=== PATIENT | male | born 1950 | race Caucasian/White ===

== ENCOUNTER 2018-08-13 09:52 | Outpatient (CLI) | payer OTHER, SELFPAY ==
[2018-08-14 09:37] LABS: PSA, Screening 0.5 ng/ml (0-6.5)
== END 2018-08-13 10:12 ==
PROVIDERS: PCP Emergency Medicine; Visit Provider Emergency Medicine
DX: Z12.5 Encounter for screening for malignant neoplasm of prostate (principal)
CPT/HCPCS: 36415; 84153; 81003

== ENCOUNTER 2018-08-13 11:18 | Outpatient (REF) | payer OTHER, SELFPAY ==
[2018-08-13 11:45] LABS: Bilirubin Negative (Negative); Blood Negative (Negative); Clarity Clear; Glucose Negative (Negative); Ketones Negative (Negative); Leukocyte Esterase Negative (Negative); Nitrite Negative (Negative); Specific Gravity 1.025 (1.005-1.025); Urobilinogen 0.2 EU/dL (Up TO 0.2); pH 5.5 (5-8)
== END 2018-08-13 11:38 ==
LOC: LBN 11:18
PROVIDERS: PCP Emergency Medicine; Visit Provider Emergency Medicine
DX: R31.9 Hematuria, unspecified (principal)
CPT/HCPCS: 81003

== ENCOUNTER 2018-08-20 08:58 | Day surgery (SDC) | payer OTHER, SELFPAY ==
--- NOTE | 2018-08-20 06:31 | W.COLOREPORT ---
Colonoscopy Report Date of procedure: 08/20/18 Pre-op diagnosis general: Hx of polyps Post-op diagnosis procedure note: other (polyps and diverticulosis) Procedure: Colonoscopy with polypectomy with cold forceps Surgeon: Betzy Alex Anesthesia proc note operative: MAC (Bebe Sampson CRNA) Estimated blood loss (mL): 3 Pathology: other (Transverse polyp x 1, descending polyp x2) Complications: None Disposition: same day Indications: Mr. Pate 18-year-old gentleman who was seen in the office to discuss another colonoscopy. He was noted to have a tubular adenoma 5 years ago. Risks, benefits and complications were again reviewed with him and he wished to proceed. No guarantees were given or implied. Prep: Miralax/Dulcolax Procedure Start Time: 11:16 Procedure End Time: 11:49 Retraction Time: 22 minutes Findings: 3 polyps and moderate diverticulosis of the sigmoid colon Procedure Description: After informed consent was obtained the patient was taken to the procedure room and placed in a left decubitous position. Monitors were applied and a time out was done. The patients name, date of , procedure, allergies to medications and metal in their body was reviewed. The patient was then sedated. Once sedated and comfortable a rectal exam was done. External exam was normal. Internal exam revealed a normal sphincter tone and no palpable masses. The prostate was smooth. The scope was then introduced and retroflexed. No internal hemorrhoids were identified. The scope was then advanced to the cecum without difficulty. The TI and appendiceal orifice were identified. The prep was marginal in the cecum and ascending colo. There was quite a bit of drak gree stool lining the mucosa. I was able to wash it off. The scope was then slowly retracted over 22 minutes back into the rectum. 1 polyp was removed in the transverse colon and 2 polyps were removed in the descending colon. There was moderate diverticulosis of the sigmoid colon. The scope was removed and the patient was woken up and taken back to Same day surgery in stable condition. The patient tolerated the procedure well and there were no immediate complications. Follow up: The patient should follow up in 3-5 years unless they develop changes in bowel habits or other new gastrointestinal complaints.
--- NOTE | 2018-08-20 06:45 | PDOC.DSDIS_ITS ---
Discharge Plan Disposition Patient Disposition: HOME Condition: Good Discharge Details Reason For Visit: SCREENING Attending Provider: Betzy Alex Primary Care Provider: Lonnie Unger Home Meds and New Rx's Prescriptions: Continue tadalafil [Cialis] 10 MG tablet 10 mg PO DAILY Qty: 20 RF: 3 atorvastatin [Lipitor] 10 MG tablet 10 mg PO DAILY Qty: 90 RF: 3 aspirin [Aspir-81] 81 MG tablet,delayed release (DR/EC) 81 mg PO DAILY RF: 0 ibuprofen [Motrin IB] 200 MG tablet 600 mg PO BID PRN PRNRF: 0 Discharge Instructions Instructions: Colonoscopy (DC), Colorectal Polyps (DC), Diverticulosis (DC) Additional Instructions: Findings: Diverticulosis Colorectal polyps Follow up: 3-5 years New Medications: none Please call if you develop: fevers >101.5 Nausea or Vomiting Abdominal pain that is not transient Shortness of breath DAY SURGERY UNIT POST COLONOSCOPY INSTRUCTIONS 1. Because there will be medication in your system for the next 24 hours, you may feel a little sleepy. Your coordination will be affected. Therefore: a. Do not drive or operate dangerous equipment for 24 hours. b. Do not drink alcohol beverages for 24 hours (not even beer). c. Plan to go home and rest for the day. 2. Generally there are no restrictions on your activity after a day or so has gone by, but you may feel a bit fatigued for a few days. 3 After you arrive home you may have a light meal and return to a normal diet as you can tolerate it without feeling sick to your stomach. 4. After surgery, you may feel pain or discomfort. This should be only transient , but if it persists please contact your doctor. 5. If there are any questions regarding the findings of your procedure, please feel free to contact your doctor. 6. If you are unable to contact your doctor with a problem, contact the hospital at [phone]. 7. Continue all your regular medications unless directed otherwise. I understand the above instructions and have no questions. Signature of Patient or Responsible Adult Escort Date/Time Name of Responsible Adult Escort Signature of Nurse Date/Time Activity:: Activity as Tolerated Diet:: high fiber diet Discharge Orders Discharge Orders: Discharge Order (Routine); Ordered 08/20/18 Ordered By: Betzy Alex DS: Diagnosis Discharge Diagnosis (1) Diverticulosis: Status: Acute (2) Colorectal polyps: Status: Acute
[2018-08-20 09:25] VITALS: BP 126/65; PULSE 63; RESP 16; TEMP 36.4; O2SAT 97
[2018-08-20] MEDS: Lactated Ringers 1,000 ML 80 ML IV (10:05)
--- NOTE | 2018-08-20 11:37 | BOWEL_PTH ---
PATIENT: David Pate LOC: [facility] U#:[id number] AGE/SX: 68/M ROOM: RE08/20/[address]: Betzy Alex MD : [id number] BED: DIS: 08/20/2018 SPEC #: [id number] RECD: 08/20/18 13:12 STATUS: MO REQ #: [id number] IZABELA: 08/20/18 11:[address]: Betzy Alex DEPT: Surgical Specimen RECD BY: Sinai Ruiz ENTERED: 08/20/18 13:13 SP TYPE: Bowel OTHR DR: Lonnie Unger DO Tissues: 1 - BIOPSY BOWEL 2 - BIOPSY BOWEL Procedures: GROSS AND MICRO LEVEL 4 Comments: [id number]
[2018-08-20 12:25] VITALS: BP 138/85; PULSE 83; RESP 16; TEMP 36; O2SAT 98
== END 2018-08-20 13:05 | disposition home or self-care (01) ==
LOC: SUR 08:59
PROVIDERS: PCP Emergency Medicine; Visit Provider Surgery
PROC: 0DJD8ZZ Inspection of Lower Intestinal Tract, Via Natural or Artificial Opening Endoscopic (ICD-10-PCS; CPT 45378; principal; 2018-08-20 10:15)
DX: Z12.11 Encounter for screening for malignant neoplasm of colon (principal); D12.3 Benign neoplasm of transverse colon; K63.5 Polyp of colon; K57.30 Diverticulosis of large intestine without perforation or abscess without bleeding; Z86.010 Personal history of colon polyps; G47.33 Obstructive sleep apnea (adult) (pediatric)
CPT/HCPCS: 45380; 88305

== ENCOUNTER 2019-01-21 02:08 | Outpatient (CLI) | payer MEDICARE, BC, SELFPAY ==
[2019-01-21 12:29] LABS: Hemoglobin A1C 5.4 % (4.5-6.2)
[2019-01-21 12:48] LABS: ALT 38 U/L (12-78); AST 25 U/L (15-37); Albumin 3.6 g/dL (3.4-5.0); Alkaline Phosphatase 66 U/L (46-116); Anion Gap 9.3 mmol/L (3-11); BUN 20 mg/dL (7-18); Bilirubin, Total 0.7 mg/dL (0.2-1.0); CO2 27.7 mmol/L (21.0-32.0); CREATININE 0.92 mg/dL (0.70-1.30); Calcium 8.7 mg/dL (8.5-10.1); Chloride 105 mmol/L (98-107); Cholesterol 174 mg/dL (50-200); Glucose 106 mg/dL (70-100); HDL Cholesterol 59 mg/dL (40-60); LDL CHOLESTEROL 96 mg/dL (<100); Potassium 4.3 mmol/L (3.5-5.1); Sodium 142 mmol/L (136-145); TSH (W/Ref FT4) 2.43 uIU/mL (0.358-3.74); Total Protein 7.1 g/dL (6.4-8.2); Triglyceride 127 mg/dL (30-150)
== END 2019-01-21 02:28 ==
PROVIDERS: PCP Family Medicine; Visit Provider Family Medicine
DX: E78.5 Hyperlipidemia, unspecified (principal); R03.0 Elevated blood-pressure reading, without diagnosis of hypertension; E66.9 Obesity, unspecified; R73.09 Other abnormal glucose
CPT/HCPCS: 36415; 80053; 80061; 83721; 83036; 84443

== ENCOUNTER → 2020-03-02 10:29 | Outpatient (BNVA) | payer MEDICARE, BC, SELFPAY | PROVIDERS: PCP Family Medicine; Referring Provider Otolaryngology; Visit Provider Nurse Practitioner Gerontology | DX: N40.0 Benign prostatic hyperplasia without lower urinary tract symptoms (principal) | CPT/HCPCS: 81003; 99204; 99215 ==

== ENCOUNTER 2020-04-20 10:53 | Outpatient (CLI) | payer MEDICARE, BC, SELFPAY ==
--- NOTE | 2020-04-20 10:45 | DI.RAD_ITS ---
EXAM: XR SHOULDER RT COMPLETE 2+V CLINICAL HISTORY: right shoulder pain. TECHNIQUE: 2D digital imaging was performed. COMPARISON: CR RIGHT SHOULDER 1 VIEW from 05/13/2013 FINDINGS: There are stable postsurgical changes of the right shoulder. This includes resection of the distal c lavicle and orthopedic anchors within the humeral head. The bones are intact. No acute fracture or dislocation. The soft tissues are unremarkable. IMPRESSION: Stable postsurgical changes of the right shoulder. DATA REPOSITORY: RADIATION DOSE DELIVERED:
== END 2020-04-20 11:13 ==
PROVIDERS: PCP Family Medicine; Referring Provider Family Medicine; Visit Provider Student in an Organized Health Care Education/Training Program
DX: M25.511 Pain in right shoulder (principal); Z98.890 Other specified postprocedural states; S46.011A Strain of muscle(s) and tendon(s) of the rotator cuff of right shoulder, initial encounter; X58.XXXA Exposure to other specified factors, initial encounter; M75.51 Bursitis of right shoulder; M75.21 Bicipital tendinitis, right shoulder; M75.41 Impingement syndrome of right shoulder
CPT/HCPCS: 99204; 99215; 73030

== ENCOUNTER 2020-04-26 00:21 | Outpatient (CLI) | payer MEDICARE, BC, SELFPAY ==
--- NOTE | 2020-04-26 06:45 | DI.MRI_ITS ---
EXAM: MR UPPER JOINT RT WO CLINICAL HISTORY: Rotator cuff re-tear, Prior open repair 2012, tendinitis, impingement. TECHNIQUE: Multiplanar multisequence MRI was performed. COMPARISON: None. FINDINGS: There has been a previous distal or distal clavicular resection. Multiple metallic densities are no apple in the humeral head related to prior rotator cuff tendon repair. Due to the artifact, the distal supraspinatus tendon is not well seen. There is mild supraspinatus muscle atrophy. The infraspinat us tendon appears intact. There is fluid around the biceps tendon inferiorly. There is marked edema within the superior biceps tendon. The biceps tendon appears is subluxed medially. There is spurri ng at the lesser tuberosity. The subscapularis teres minor tendons appear intact. No labral defects are identified. IMPRESSION: Severe tendinosis of the long head of the biceps tendon with medial subluxation. DATA REPOSITORY:
== END 2020-04-26 00:41 ==
PROVIDERS: PCP Family Medicine; Visit Provider Student in an Organized Health Care Education/Training Program
DX: M75.21 Bicipital tendinitis, right shoulder (principal); S46.119A Strain of muscle, fascia and tendon of long head of biceps, unspecified arm, initial encounter
CPT/HCPCS: 73221

== ENCOUNTER → 2020-04-28 11:20 | Outpatient (BNVA) | payer MEDICARE, BC, SELFPAY | PROVIDERS: PCP Family Medicine; Referring Provider Family Medicine; Visit Provider Student in an Organized Health Care Education/Training Program | DX: S46.011D Strain of muscle(s) and tendon(s) of the rotator cuff of right shoulder, subsequent encounter (principal); X58.XXXD Exposure to other specified factors, subsequent encounter; M75.21 Bicipital tendinitis, right shoulder; M75.41 Impingement syndrome of right shoulder; M75.51 Bursitis of right shoulder | CPT/HCPCS: 99214 ==

== ENCOUNTER → 2020-05-31 08:17 | Outpatient (BNVA) | payer MEDICARE, BC, SELFPAY | PROVIDERS: PCP Family Medicine; Referring Provider Family Medicine; Visit Provider Nurse Practitioner Gerontology | DX: N40.0 Benign prostatic hyperplasia without lower urinary tract symptoms (principal) | CPT/HCPCS: 99213 ==

== ENCOUNTER → 2020-06-16 07:59 | Outpatient (BNVA) | payer MEDICARE, BC, SELFPAY | PROVIDERS: PCP Family Medicine; Referring Provider Family Medicine; Visit Provider Student in an Organized Health Care Education/Training Program | DX: S46.011D Strain of muscle(s) and tendon(s) of the rotator cuff of right shoulder, subsequent encounter (principal); X58.XXXD Exposure to other specified factors, subsequent encounter; M75.21 Bicipital tendinitis, right shoulder; M75.41 Impingement syndrome of right shoulder; M75.51 Bursitis of right shoulder; M75.22 Bicipital tendinitis, left shoulder | CPT/HCPCS: 99213 ==

== ENCOUNTER 2020-07-01 03:12 | Outpatient (CLI) | payer MEDICARE, BC, SELFPAY ==
[2020-07-01 12:42] LABS: ALT 31 U/L (16-63); AST 18 U/L (15-37); Albumin 3.7 g/dL (3.4-5.0); Alkaline Phosphatase 65 U/L (46-116); Anion Gap 7.5 mmol/L (3-11); BUN 20 mg/dL (7-18); CO2 26.5 mmol/L (21.0-32.0); CREATININE 0.84 mg/dL (0.70-1.30); Calcium 8.7 mg/dL (8.5-10.1); Calculated LDL 98 mg/dL (<100); Chloride 104 mmol/L (98-107); Cholesterol 170 mg/dL (<200); Glucose 95 mg/dL (74-106); HDL Cholesterol 56 mg/dL (40-60); Sodium 138 mmol/L (136-145); Total Protein 6.8 g/dL (6.4-8.2); Triglyceride 84 mg/dL (<150)
[2020-07-01 18:38] LABS: PSA, Diagnostic 0.5 ng/mL (0.0-6.5)
== END 2020-07-01 03:32 ==
PROVIDERS: PCP Family Medicine; Visit Provider Family Medicine
DX: I10 Essential (primary) hypertension (principal); E78.00 Pure hypercholesterolemia, unspecified; N40.0 Benign prostatic hyperplasia without lower urinary tract symptoms
CPT/HCPCS: 36415; 80053; 80061; 84153

== ENCOUNTER 2020-07-16 07:56 | Outpatient (CLI) | payer MEDICARE, BC, SELFPAY ==
[2020-07-19 16:08] LABS: Patient Race White; SARS-CoV-2 RNA Undetected (Undetected); SARS-CoV-2 Specimen Source Nasopharynx
== END 2020-07-16 08:16 ==
PROVIDERS: PCP Family Medicine; Visit Provider Family Medicine
DX: R50.81 Fever presenting with conditions classified elsewhere (principal)
CPT/HCPCS: U0003

== ENCOUNTER 2020-08-19 14:34 | Outpatient (CLI) | payer MEDICARE, BC, SELFPAY ==
--- NOTE | 2020-08-23 11:52 | W.HOLTRPT ---
Date of service: 08/23/20 Time of Service: 11:52 Holter Monitor Report Referring Provider:: Pb Indications:: HTN/Palps Holter Monitor Note: This is a 48-hour Holter monitor ordered for indication of hypertension and palpitations. ?The patient was in normal sinus rhythm for 82% of the recording with an average heart rate of 76 bpm. ?There were 0 episodes of supraventricular tachycardia and rare PACs. ?There were 3 episodes of NSVT with the longest lasting 4 beats. There were frequent (11%) single ventricular ectopic beats. ?There were no episodes of atrial fibrillation, no pauses greater than 3 seconds and no evidence of high degree heart block.
== END 2020-08-19 14:54 ==
PROVIDERS: PCP Family Medicine; Visit Provider Family Medicine
DX: R00.2 Palpitations (principal); I10 Essential (primary) hypertension
CPT/HCPCS: 93225

== ENCOUNTER 2020-08-23 10:09 | Outpatient (CLI) | payer MEDICARE, BC, SELFPAY | END 2020-08-23 10:29 | PROVIDERS: PCP Family Medicine; Visit Provider Family Medicine | DX: I10 Essential (primary) hypertension (principal); R00.2 Palpitations; I47.2 Ventricular tachycardia; I49.3 Ventricular premature depolarization | CPT/HCPCS: 93227; 93226 ==

== ENCOUNTER → 2021-06-06 08:06 | Outpatient (BNVA) | payer MEDICARE, BC, SELFPAY | PROVIDERS: PCP Family Medicine; Referring Provider Family Medicine; Visit Provider Nurse Practitioner Gerontology | DX: N40.0 Benign prostatic hyperplasia without lower urinary tract symptoms (principal); Z79.899 Other long term (current) drug therapy | CPT/HCPCS: 99214 ==

== ENCOUNTER 2021-08-31 02:19 | Outpatient (CLI) | payer MEDICARE, BC, SELFPAY ==
[2021-08-31 15:23] LABS: BUN 16 mg/dL (7-18); Calcium 8.9 mg/dL (8.5-10.1); Glucose 98 mg/dL (74-106)
[2021-08-31 15:24] LABS: Albumin 3.9 g/dL (3.4-5.0); Bilirubin, Total 0.7 mg/dL (0.2-1.0); CREATININE 0.8 mg/dL (0.70-1.30); Calculated LDL 110 mg/dL (<100); Cholesterol 189 mg/dL (<200); HDL Cholesterol 54 mg/dL (40-60); Total Protein 7.2 g/dL (6.4-8.2); Triglyceride 125 mg/dL (<150)
[2021-08-31 15:25] LABS: ALT 43 U/L (16-63); AST 26 U/L (15-37); Alkaline Phosphatase 89 U/L (46-116); Anion Gap 7.5 mmol/L (3-11); CO2 29.5 mmol/L (21.0-32.0); Chloride 106 mmol/L (98-107); Potassium 4.5 mmol/L (3.5-5.1); Sodium 143 mmol/L (136-145)
[2021-08-31 22:44] LABS: PSA, Diagnostic 0.5 ng/mL (0.0-6.5)
== END 2021-08-31 02:20 | disposition home or self-care (01) ==
PROVIDERS: PCP Family Medicine; Visit Provider Family Medicine
DX: I10 Essential (primary) hypertension; H18.419 Arcus senilis, unspecified eye; N40.0 Benign prostatic hyperplasia without lower urinary tract symptoms
CPT/HCPCS: 36415; 80053; 80061; 84153

== ENCOUNTER → 2022-03-23 09:32 | Outpatient (BNVA) | payer MEDICARE, BC, SELFPAY | PROVIDERS: PCP Family Medicine; Referring Provider Family Medicine; Visit Provider Student in an Organized Health Care Education/Training Program | DX: M75.21 Bicipital tendinitis, right shoulder (principal) | CPT/HCPCS: 99214 ==

== ENCOUNTER → 2022-04-28 09:10 | Outpatient (BNVA) | payer MEDICARE, BC, SELFPAY | PROVIDERS: PCP Family Medicine; Referring Provider Family Medicine; Visit Provider Student in an Organized Health Care Education/Training Program | DX: M75.21 Bicipital tendinitis, right shoulder (principal) | CPT/HCPCS: 99215 ==

== ENCOUNTER 2022-05-01 02:52 | Outpatient (CLI) | payer MEDICARE, BC, SELFPAY ==
[2022-05-01 12:40] LABS: Source Nasal/Nares
[2022-05-01 15:24] LABS: COVID-19 PCR Negative (Negative)
== END 2022-05-01 02:53 | disposition home or self-care (01) ==
LOC: LBO 02:52
PROVIDERS: PCP Family Medicine; Visit Provider Student in an Organized Health Care Education/Training Program
DX: Z20.822 Contact with and (suspected) exposure to COVID-19 (principal); Z01.818 Encounter for other preprocedural examination
CPT/HCPCS: 87635

== ENCOUNTER 2022-05-01 11:26 | Emergency (ER) | payer MEDICARE, BC, SELFPAY ==
--- NOTE | 2022-05-01 11:15 | RT.EKG_ITS ---
APPROVED REPORT Exam: Resting ECG Reason for Exam: R facial numbness/CVA concern Patient Location: E HR:66 bpm ECG Measurements Heart Rate 66 AXIS WY 132 P 7 QRSd 113 QRS -30 QT 402 T 71 QTc 420 Conclusion Sinus rhythm...normal P axis, V-rate 60- 99 sinus rhythm at 66, normal axis, T wave flattening compared to prior 08/10, no STEMI, nondiagnostic E KG
[2022-05-01 11:34] VITALS: BP 150/77; PULSE 67; TEMP 36.5; O2SAT 96
[2022-05-01 12:00] VITALS: RESP 16
[2022-05-01 12:29] VITALS: BP 129/70; PULSE 68; RESP 18; O2SAT 94
[2022-05-01 12:42] VITALS: TEMP 36.4
--- NOTE | 2022-05-01 13:00 | DI.MRI_ITS ---
Exam(s) MR ANGIO NECK WO CLINICAL HISTORY: new vertigo. TECHNIQUE: MRA MAGNETIC RESONANCE ANGIOGRAPHY OF THE NECK CONTRAST MATERIAL: IV Contrast: NONE. COMPARISON: None. FINDINGS: ANTERIOR CIRCULATION: Aortic arch anatomy is conventional. There does not appear to be significant s tenosis at the origin the great vessels off the aortic arch. Both common carotid arteries ascend nor mal luminal diameters. There is no evidence of significant stenosis at the carotid bulbs and proxima l internal carotid arteries and the internal carotid arteries in the upper neck appear nicely patent. POSTERIOR CIRCULATION: Both vertebral arteries arising conventional fashion off the subclavian arteri es and ascend with normal luminal diameters in the foramen transverse area no evidence of intralumina l thrombus nor dissection. At the skull base both vertebral arteries contribute to the formation of the basilar artery. IMPRESSION: 1. Patent carotid arteries in the neck. No hemodynamically significant stenosis of these vessels in the neck. 2. Patent vertebral arteries in the neck. 3. See separate brain MRA report DATA REPOSITORY:
--- NOTE | 2022-05-01 13:00 | DI.MRI_ITS ---
Exam(s) MR BRAIN WO EXAM: MR BRAIN WO CLINICAL HISTORY: new vertigo TECHNIQUE: Multiplanar multisequence MRI of the brain was performed. COMPARISON: MR MR ANGIO BRAIN WO from 05/01/2022 FINDINGS: CEREBRAL PARENCHYMA: There is no evidence of intracranial hemorrhage, mass effect, or shift of midline structures. There are no extra-axial fluid collections. Ventricles are not enlarged or shifted. There is no significant focal signal abnormality in the cerebellar hemispheres nor within the bean, m idbrain, and thalami. There are few small sub cm foci of signal abnormality in the [place] in supra ventricular white matter, not associated with hemorrhage or surrounding edema nor restricted diffusion on DWI. Also no evidenc e of microhemorrhages on SWI.. There is no significant focal signal abnormality evident on diffusion imaging to suggest acute ischem ic event. PITUITARY GLAND: No mass nor parasellar abnormality. No obvious abnormality in the cavernous sinuses. FLOW VOIDS: The expected flow void are noted. No evidence of obvious aneurysm nor obvious vascular ma lformation. PARANASAL SINUSES: The visualized paranasal sinuses appear unremarkable. No obvious finding ORBITS: No obvious findings. IMPRESSION: No significant acute intracranial findings on this noninfused MRI scan of the brain. Are few nonspecific foci of signal abnormality in periventricular white matter consistent with chroni c small vessel ischemic changes. No evidence of hemorrhage. No evidence of acute ischemic event. DATA REPOSITORY:
--- NOTE | 2022-05-01 13:00 | DI.MRI_ITS ---
Exam(s) MR ANGIO BRAIN WO EXAM: MR ANGIO BRAIN WO CLINICAL HISTORY: new vertigo TECHNIQUE: MRA performed on 1.5 stephen unit with [id number] sequence No IV contrast COMPARISON: No exams were available for comparison FINDINGS: ANTERIOR CIRCULATION: Both internal carotid arteries are patent in the skull base and are also demonstrated to be patent in the cavernous sinuses. Supraclinoid aspects of these vessels are patent and nonaneurysmal. Both A1 segments are patent as are the anterior cerebral arteries and there is no evidence of aneurysm at th e level of the anterior communicating artery. POSTERIOR CIRCULATION: Basilar artery is formed by both vertebral arteries and ascends in the midline with normal luminal diameter. Distally in the basilar artery gives off patent bilateral superior ce rebellar arteries. Above this level the basilar artery terminates as patent bilateral posterior cere bral arteries. There is no evidence of aneurysm of the tip basilar artery nor elsewhere in the [id number]. IMPRESSION: 1. Patent intracranial arteries. No significant stenosis nor intraluminal thrombus. No aneurysms. DATA REPOSITORY:
[2022-05-01 13:17] LABS: Abs Immature Grans 0.01 10^3/uL (0.0-0.06); Absolute Basophil Count 0.03 10^3/uL (0.0-0.2); Absolute Eosinophil Count 0.11 10^3/uL (0.0-0.7); Absolute Lymphocyte Count 1.82 10^3/uL (1.2-3.4); Absolute Monocyte Count 0.64 10^3/uL (0.1-0.8); Basophils % 0.4; Eosinophils % 1.6; HCT 37.7 % (40.0-50.0); HGB 12.9 g/dL (13.5-17.5); Immature Grans % 0.1; Lymphocytes % 27.1; MCH 30.6 pg (27.0-33.0); MCHC 34.2 % (32.0-36.0); MCV 90 fL (80-95); MPV 9.3 fL (8.0-11.0); Monocytes % 9.5; Neutrophils % 61.3; Platelet Count 224 10^3/uL (130-400); RBC 4.21 10^6/uL (4.36-5.78); RDW 13.4 % (11.8-14.1); RDW-SD 44.2 fL; WBC 6.71 10^3/uL (4.4-10.8)
--- NOTE | 2022-05-01 13:48 | ED.GENADUL_ITS ---
Discharge Plan Disposition Patient Disposition: HOME Condition: Good Discharge Details Clinical Impression: Dizziness Primary Care Provider: Bobbi Ambriz ED Provider: Ish Nicolas Home Meds and New Rx's Prescriptions: New meclizine 25 mg tablet 25 mg PO BID PRNQty: 30 0RF Continued mecobalamin (vitamin B12) 1,000 mcg tablet,disintegrating 1,000 mcg SL DAILY Rx Instructions: place tablet under tongue and allow to dissolve for at least30 secs before swallowing ICaps AREDS2 250 mg-200 unit -12.5 mg-1 mg capsule 1 cap PO BID fexofenadine [Sheron Allergy] 180 mg tablet 180 mg PO DAILY atorvastatin [Lipitor] 10 mg tablet 10 mg PO DAILY Qty: 90 3RF tamsulosin 0.4 mg capsule 0.4 mg PO DAILY Qty: 90 3RF aspirin [Aspir-81] 81 MG tablet,delayed release (DR/EC) 81 mg PO DAILY tadalafil [Cialis] 10 mg tablet 10 mg PO DAILY PRN No Action amlodipine 10 mg tablet 10 mg PO HS celecoxib 200 mg capsule 200 mg PO BID PRN (Reason: pain) Qty: 60 1RF aspirin 81 mg tablet,delayed release (DR/EC) 81 mg PO BID Qty: 28 0RF acetaminophen 500 mg tablet 1,000 mg PO Q8H PRN (Reason: pain) Qty: 90 3RF oxycodone 5 mg tablet 5 mg PO Q4H Qty: 15 0RF Discharge Instructions Instructions: Benign Paroxysmal Positional Vertigo (ED), Dizziness (ED) Additional Instructions: Please return immediately to the emergency department if you develop any new or worsening symptoms, if your condition does not improve as expected, or if you become otherwise concerned. It is extremely important that you call soon as possible to make an appointment to be seen in follow-up for this visit by your primary care doctor. Stand Alone Forms: Physical Therapy Referral Referrals: Bobbi Ambriz MD, [place] [Primary Care Provider] - Discharge Data Discharge Date/Time-TO BE ENTERED AT DEPARTURE: 05/01/22 18:18 Medical Decision Making David Pate is a 72-year-old man with history of hypertension, hyperlipidemia, sleep apnea, BPH presenting to the emergency department with dizziness. Patient reports that for the past 4 days or so he has had an intermittent sensation of abnormal movement/spinning/feeling somewhat off balance. Patient reports that symptoms seem to be worse at night and while lying down, but he does occasionally have them during the day while seated or standing. Patient reports that symptoms are brief, lasting seconds to 1 to 2 minutes. Patient reports that he has also had an intermittent odd sensation in his right face that is new, feels somewhat tingly. He reports that this is also intermittent. 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 Patient reports that he has never had similar symptoms in the past. He states that he is also concerned because he is due to have shoulder surgery this week, and wanted to make sure that he was not having a medical problem that would cause issues during surgery. He denies fever, cough, shortness of breath, vomiting, diarrhea, other numbness, weakness, any pain including ear pain, hearing changes, tinnitus. Patient states that he does not think that he is feeling faint/lightheaded during these episodes, but that he is unsure. He has not had any loss of consciousness. On exam Pt is well and non-toxic appearing. Non-focal neuro exam. Concern for peripheral vs stuttering TIA/central vertigo, other. Doubt ACS, PE, arrhythmia. Exam/hx at this time is not c/w meningitis, acute intracranial hemorrhage, sepsis. Plan for EKG, IV placement, MRI/MRA, screening labs. If initial w/u neg will obtain repeat trop. MRI/MRA neg. Pt signed out to Dr. Ish Nicolas at time of shift change with repeat trop pending. Medical Records Medical records reviewed: Yes I reviewed the patient's medical records. Lab Data Lab results reviewed: Yes I reviewed the patient's lab results. ECG Data Attestation: I personally reviewed and interpreted this ECG (s) as follows: Interpretation: EKG shows sinus rhythm at 66, normal axis, T wave flattening compared to prior 08/10, no STEMI, nondiagnostic EKG HPI General Mode of arrival: ambulatory . Date/Time Provider Initiated Documentation: 05/01/22 12:50 . Limitations to Documentation: no limitations . Information obtained by: patient, family, RN notes reviewed and old records reviewed . HPI Narrative: David Pate is a 72-year-old man with history of hypertension, hyperlipidemia, sleep apnea, BPH presenting to the emergency department with dizziness. Patient reports that for the past 4 days or so he has had an intermittent sensation of abnormal movement/spinning/feeling somewhat off balance. Patient reports that symptoms seem to be worse at night and while lying down, but he does occasionally have them during the day while seated or standing. Patient reports that symptoms are brief, lasting seconds to 1 to 2 minutes. Patient reports that he has also had an intermittent odd sensation in his right face that is new, feels somewhat tingly. He reports that this is also intermittent. 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 Patient reports that he has never had similar symptoms in the past. He states that he is also concerned because he is due to have shoulder surgery this week, and wanted to make sure that he was not having a medical problem that would cause issues during surgery. He denies fever, cough, shortness of breath, vomiting, diarrhea, other numbness, weakness, any pain including ear pain, hearing changes, tinnitus. Patient states that he does not think that he is feeling faint/lightheaded during these episodes, but that he is unsure. He has not had any loss of consciousness. Rel ated Data Home Medications Medication Instructions Recorded Confirmed aspirin 81 mg tablet,delayed 81 mg PO DAILY 04/14/13 05/03/22 release (Aspir-) mecobalamin (vitamin B12) 1,000 1,000 mcg sublingual DAILY 04/20/20 05/03/22 mcg disintegrating tablet,sublingual vit C 250 mg-vit E 200 unit-zinc 1 cap PO BID 08/19/20 05/03/22 ox 12.5 [id number] capsule (ICaps AREDS2) fexofenadine 180 mg tablet 180 mg PO DAILY 03/10/21 05/03/22 (Sheron Allergy) atorvastatin 10 mg tablet (Lipitor) 10 mg PO DAILY #90 tab-caps 11/10/21 05/03/22 tamsulosin 0.4 mg capsule 0.4 mg PO DAILY #90 caps 11/10/21 05/03/22 meclizine 25 mg tablet 25 mg PO BID PRN #30 tabs 05/01/22 05/03/22 tadalafil 10 mg tablet (Cialis) 10 mg PO DAILY PRN 05/01/22 05/03/22 amlodipine 10 mg tablet 10 mg PO HS 05/02/22 05/03/22 acetaminophen 500 mg tablet 1,000 mg PO Q8H PRN pain #90 tabs 05/03/22 aspirin 81 mg tablet,delayed 81 mg PO BID #28 tabs 05/03/22 release celecoxib 200 mg capsule 200 mg PO BID PRN pain #60 caps 05/03/22 oxycodone 5 mg tablet 5 mg PO Q4H #15 tabs 05/03/22 Previous Rx's Medication Instructions Recorded atorvastatin 10 mg tablet (Lipitor) 10 mg PO DAILY #90 tab-caps 11/10/21 tamsulosin 0.4 mg capsule 0.4 mg PO DAILY #90 caps 11/10/21 meclizine 25 mg tablet 25 mg PO BID PRN #30 tabs 05/01/22 acetaminophen 500 mg tablet 1,000 mg PO Q8H PRN pain #90 tabs 05/03/22 aspirin 81 mg tablet,delayed 81 mg PO BID #28 tabs 05/03/22 release celecoxib 200 mg capsule 200 mg PO BID PRN pain #60 caps 05/03/22 oxycodone 5 mg tablet 5 mg PO Q4H #15 tabs 05/03/22 Allergies Allergy/AdvReac Type Severity Reaction Status Date / Time adhesive Allergy Intermediate Skin Rash Verified 05/03/22 06:34 Penicillins Allergy Unknown ? Rash, Verified 05/03/22 06:34 patient not sure, happened as child General Stated Complaint: Dizzy/Sync CHIKI: 3 Review of Systems Narrative: Constitutional: denies fevers Eyes: denies eye pain ENT: denies ear pain, dental pain, sore throat Cardiovascular: denies chest pain, edema, palpitations Respiratory: denies SOB, cough GI: denies abdominal pain, vomiting, diarrhea : denies flank pain MSK: denies back pain, neck pain, arthralgias, myalgias Skin: denies rash Neuro: denies headaches, numbness, weakness, reports vertigo PFSH All Active Problems Dizziness (Acute) Dysfunction of right rotator cuff (Acute) Tendonitis of long head of biceps brachii of right shoulder (Acute) Rash (Acute) Heart palpitations (Acute) Hypertension (Chronic) Impingement syndrome of right shoulder (Acute) PVC (premature ventricular contraction) (Acute) Diverticulosis (Chronic) Tubular adenoma of colon (Chronic) 10/13/14 08/20/18 DR. MORENO Tinnitus (Chronic) Sensorineural hearing loss, bilateral (Chronic 08/21/14) fit with bilateral hearing aids 09/08/14 Sciatica (Chronic) left Peripheral venous insufficiency (Chronic) leg ulcers right and left-Seeing Dr. 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 Kendall Nieves 04-28-2013; excision distal clavicle Benign prostatic hyperplasia (Chronic) Medical History Bursitis of right shoulder Chronic ulcer of lower extremity Decreased hearing of both ears Elevated blood pressure reading Globus sensation Dr. Xavier History of surgery S/P left rotator cuff repair. S/P vein stripping of legs. S/P ORIF of left index finger, S/P T and A. S/P some kind of nose surgery. Post-nasal drip Dr. Xavier Tendinitis of long head of biceps brachii of left shoulder Throat clearing Dr. Xavier Traumatic tear of right rotator cuff Unilateral inguinal hernia right Welcome to Medicare preventive visit Surgical History Colonoscopy - MAC (~07/2018) 2005; 2013, TUBULAR ADENOMA History of vein stripping Repair of inguinal hernia LEFT Rotator Cuff Repair (01/09/11) left Status post inguinal hernia repair Status post rotator cuff repair vein stripping (04/26/10) non-healing venous stasis ulcer; LLE; Greater saphenous vein stripping Family History Mother , 70s Breast cancer Father , 80 Liver disease Diabetes Cancer Sister , 60s Diabetes Hyperlipidemia Cancer Brother Heart disease Hyperlipidemia Stroke Brother Alcohol abuse Breast cancer Social History Smoking/Tobacco Use Status: Never Second Hand Exposure: Yes Smoking risk assessment performed?: Yes Alcohol Intake: current Alcohol Intake frequency: a few times a week Drug use: Never Substance use type: does not use Caregiver/Support person: No Household members: spouse Housing: house Communication Needs: Hard of Hearing Do you need help understanding health information?: Never Pets and animals: Yes Pets and animals: cat(s) and dog(s) Sexually active: Yes Do you think of yourself as: straight/heterosexual Current gender identity: male What is your relationship status?: How often do you talk on the phone with friends or family?: three or more times per week How often do you get together with friends or relatives?: three or more times per week How often do you attend confucianist or oriental orthodox services?: decline to answer Do you belong to any clubs or organized social groups?: yes Panel score (0-1 are the most socially isolated patients): 3 Raquel/Advent: Yazdanism Special raquel needs: No Seatbelt use: always Drive intox or ride w/intox auto carrier driver: No Do you feel safe in your relationship?: Yes Additional Social history: unable to assess [facility] Exam Narrative Exam Narrative: Constitutional: well and [id number]-[id number], pleasant, conversing normally HENT: head atraumatic/normocephalic/normal inspection, mucous membranes moist, normal TMs and canals, no masotid TTP b/l Eyes: conjunctiva normal, sclera normal, pupils 3mm b/l ERRLA, EOMI without nystagmus Neck: no stridor, full painless, ROM, trachea midline Chest: normal inspection Resp: normal work of breathing, LCTAB Cardio: normal rate, normal rhythm, no murmur appreciated GI: abdomen soft, non-tender, non-distended Back: normal inspection, no rash Skin: warm, dry, normal color, no rash Neuro: alert, not altered, 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, motor 5/5 throughout, normal finger to nose and heel to winslow b/l, normal tone Ext: no edema Psych: normal mood, normal affect, normal behavior Course Vital Signs Vital signs: Vital Signs Temperature 36.5 C 05/01/22 11:34 Pulse 67 05/01/22 11:34 Blood Pressure 150/77 H 05/01/22 11:34 Pulse Oximetry 96 05/01/22 11:34 Temperature 36.4 C L 05/01/22 12:42 Temperature Source Oral 05/01/22 12:42 Pulse 68 05/01/22 12:29 Respiratory Rate 18 05/01/22 12:29 Respiratory Effort Non-Labored 05/01/22 12:00 Respiratory Depth Normal 05/01/22 12:00 Respiratory Pattern Normal 05/01/22 12:00 Blood Pressure 129/70 05/01/22 12:29 Blood Pressure Position Sitting 05/01/22 11:34 Pulse Oximetry 94 05/01/22 12:29 Oxygen Delivery Method Room Air 05/01/22 12:29 Oxygen Flow Rate 0 05/01/22 12:29 Pain Level 0 05/01/22 12:29 Lab/Test Results Lab/Test Results: Laboratory Tests Range/Units 05/01/22 05/01/22 05/01/22 11:55 11:55 11:55 WBC (4.4-10.8) 10^3/uL 6.71 RBC (4.36-5.78) 10^6/uL 4.21 L Hgb (13.5-17.5) g/dL 12.9 L Hct (40.0-50.0) % 37.7 L MCV (80-95) fL 90 MCH (27.0-33.0) pg 30.6 MCHC (32.0-36.0) % 34.2 RDW (11.8-14.1) % 13.4 Plt Count (130-400) 10^3/uL 224 MPV (8.0-11.0) fL 9.3 Immature Gran % 0.1 Neutrophils % 61.3 Lymphocytes % 27.1 Monocytes % 9.5 Eosinophils % 1.6 Basophils % 0.4 Nucleated RBC % (0.0-0.3) % 0.0 Absolute Neutrophils (1.2-6.7) 10^3/uL 4.10 Absolute Lymphocytes (1.2-3.4) 10^3/uL 1.82 Absolute Monocytes (0.1-0.8) 10^3/uL 0.64 Absolute Eosinophils (0.0-0.7) 10^3/uL 0.11 Absolute Basophils (0.0-0.2) 10^3/uL 0.03 D-Dimer Cancelled Sodium Cancelled Potassium Cancelled Chloride Cancelled Carbon Dioxide Cancelled Anion Gap Cancelled BUN Cancelled Creatinine Cancelled Estimated GFR/1.73 m2 Cancelled Glucose Cancelled Calcium Cancelled Magnesium Cancelled Total Bilirubin Cancelled AST Cancelled ALT Cancelled Alkaline Phosphatase Cancelled Troponin I Cancelled Total Protein Cancelled Albumin Cancelled Sign Out Sign Out Data: Sign Out Comment: Patient signed out to Dr. Nicolas at time of shift change with repeat troponin pending Last updated by Malina Nicolas MD at 05/01/22 16:32
[2022-05-01 14:16] LABS: ALT 36 U/L (16-63); AST 21 U/L (15-37); Albumin 3.6 g/dL (3.4-5.0); Alkaline Phosphatase 95 U/L (46-116); Anion Gap 8.3 mmol/L (3-11); BUN 15 mg/dL (7-18); Bilirubin, Total 0.6 mg/dL (0.2-1.0); CO2 26.7 mmol/L (21.0-32.0); CREATININE 0.8 mg/dL (0.70-1.30); Calcium 8.6 mg/dL (8.5-10.1); Chloride 106 mmol/L (98-107); Glucose 91 mg/dL (74-106); Magnesium 2.2 mg/dL (1.8-2.4); Potassium 3.5 mmol/L (3.5-5.1); Sodium 141 mmol/L (136-145); Total Protein 7.1 g/dL (6.4-8.2); Troponin I < 50 ng/L (<or=60)
[2022-05-01 14:30] LABS: D-Dimer 518 ng/mlFEU (<500)
[2022-05-01 16:51] VITALS: BP 137/83; PULSE 64; TEMP 36.5; O2SAT 98
[2022-05-01 16:51] LABS: Troponin I < 50 ng/L (<or=60)
--- NOTE | 2022-05-01 17:42 | W.EDPROG ---
Date of service: 05/01/22 Time of Service: 17:42 Medical Decision Making Care signed out by Dr. Brittanie Nicolas, please see her documentation regarding initial ED presentation and course. MRI of the brain was interpreted by radiology:IMPRESSION: No significant acute intracranial findings on this noninfused MRI scan of the brain. Are few nonspecific foci of signal abnormality in periventricular white matter consistent with chronic small vessel ischemic changes.? No evidence of hemorrhage.? No evidence of acute ischemic event. MRA of the brain was interpreted by radiology:IMPRESSION: 1. Patent intracranial arteries.? No significant stenosis nor intraluminal thrombus.? No aneurysms. MRA of the neck was interpreted by radiology:IMPRESSION: 1. Patent carotid arteries in the neck.? No hemodynamically significant stenosis of these vessels in the neck. 2. Patent vertebral arteries in the neck. 3. See separate brain MRA report Plan at signout was to follow-up on delta troponin. Second troponin reviewed and negative and unchanged from prior. Plan for discharge with outpatient follow-up. Will start meclizine and refer to PT for vestibular rehab. Usual customary discharge instructions were reviewed with the patient. A medical screening exam was performed today. Patient stable at discharge. Lab Data Lab results reviewed: Yes I reviewed the patient's lab results. Labs: Laboratory Tests Range/Units 05/01/22 05/01/22 05/01/22 11:55 11:55 11:55 WBC (4.4-10.8) 10^3/uL 6.71 RBC (4.36-5.78) 10^6/uL 4.21 L Hgb (13.5-17.5) g/dL 12.9 L Hct (40.0-50.0) % 37.7 L MCV (80-95) fL 90 MCH (27.0-33.0) pg 30.6 MCHC (32.0-36.0) % 34.2 RDW (11.8-14.1) % 13.4 Plt Count (130-400) 10^3/uL 224 MPV (8.0-11.0) fL 9.3 Immature Gran % 0.1 Neutrophils % 61.3 Lymphocytes % 27.1 Monocytes % 9.5 Eosinophils % 1.6 Basophils % 0.4 Nucleated RBC % (0.0-0.3) % 0.0 Absolute Neutrophils (1.2-6.7) 10^3/uL 4.10 Absolute Lymphocytes (1.2-3.4) 10^3/uL 1.82 Absolute Monocytes (0.1-0.8) 10^3/uL 0.64 Absolute Eosinophils (0.0-0.7) 10^3/uL 0.11 Absolute Basophils (0.0-0.2) 10^3/uL 0.03 D-Dimer Cancelled Sodium Cancelled Potassium Cancelled Chloride Cancelled Carbon Dioxide Cancelled Anion Gap Cancelled BUN Cancelled Creatinine Cancelled Estimated GFR/1.73 m2 Cancelled Glucose Cancelled Calcium Cancelled Magnesium Cancelled Total Bilirubin Cancelled AST Cancelled ALT Cancelled Alkaline Phosphatase Cancelled Troponin I Cancelled Total Protein Cancelled Albumin Cancelled Range/Units 05/01/22 05/01/22 05/01/22 13:20 13:23 13:40 WBC (4.4-10.8) 10^3/uL RBC (4.36-5.78) 10^6/uL Hgb (13.5-17.5) g/dL Hct (40.0-50.0) % MCV (80-95) fL MCH (27.0-33.0) pg MCHC (32.0-36.0) % RDW (11.8-14.1) % Plt Count (130-400) 10^3/uL MPV (8.0-11.0) fL Immature Gran % Neutrophils % Lymphocytes % Monocytes % Eosinophils % Basophils % Nucleated RBC % (0.0-0.3) % Absolute Neutrophils (1.2-6.7) 10^3/uL Absolute Lymphocytes (1.2-3.4) 10^3/uL Absolute Monocytes (0.1-0.8) 10^3/uL Absolute Eosinophils (0.0-0.7) 10^3/uL Absolute Basophils (0.0-0.2) 10^3/uL D-Dimer Cancelled Sodium Cancelled 141 Potassium Cancelled 3.5 Chloride Cancelled 106 Carbon Dioxide Cancelled 26.7 Anion Gap Cancelled 8.3 BUN Cancelled 15 Creatinine Cancelled 0.8 Estimated GFR/1.73 m2 Cancelled >= 60.00 Glucose Cancelled 91 Calcium Cancelled 8.6 Magnesium Cancelled 2.2 Total Bilirubin Cancelled 0.6 AST Cancelled 21 ALT Cancelled 36 Alkaline Phosphatase Cancelled 95 Troponin I Cancelled < 50 Total Protein Cancelled 7.1 Albumin Cancelled 3.6 Range/Units 05/01/22 05/01/22 13:40 15:59 WBC (4.4-10.8) 10^3/uL RBC (4.36-5.78) 10^6/uL Hgb (13.5-17.5) g/dL Hct (40.0-50.0) % MCV (80-95) fL MCH (27.0-33.0) pg MCHC (32.0-36.0) % RDW (11.8-14.1) % Plt Count (130-400) 10^3/uL MPV (8.0-11.0) fL Immature Gran % Neutrophils % Lymphocytes % Monocytes % Eosinophils % Basophils % Nucleated RBC % (0.0-0.3) % Absolute Neutrophils (1.2-6.7) 10^3/uL Absolute Lymphocytes (1.2-3.4) 10^3/uL Absolute Monocytes (0.1-0.8) 10^3/uL Absolute Eosinophils (0.0-0.7) 10^3/uL Absolute Basophils (0.0-0.2) 10^3/uL D-Dimer 518 H Sodium Potassium Chloride Carbon Dioxide Anion Gap BUN Creatinine Estimated GFR/1.73 m2 Glucose Calcium Magnesium Total Bilirubin AST ALT Alkaline Phosphatase Troponin I < 50 Total Protein Albumin Sign Out Sign Out Data: Sign Out Comment: Patient signed out to Dr. Nicolas at time of shift change with repeat troponin pending Last updated by Malina Nicolas MD at 05/01/22 16:32 Discharge Plan Disposition Patient Disposition: HOME Condition: Good Discharge Details Clinical Impression: Dizziness Primary Care Provider: Bobbi Ambriz ED Provider: Ish Nicolas Home Meds and New Rx's Prescriptions: New meclizine 25 mg tablet 25 mg PO BID PRNQty: 30 0RF Continued mecobalamin (vitamin B12) 1,000 mcg tablet,disintegrating 1,000 mcg SL DAILY Rx Instructions: place tablet under tongue and allow to dissolve for at least30 secs before swallowing ICaps AREDS2 250 mg-200 unit -12.5 mg-1 mg capsule 1 cap PO BID fexofenadine [Sheron Allergy] 180 mg tablet 180 mg PO DAILY amlodipine 10 mg tablet 10 mg PO DAILY Qty: 90 5RF atorvastatin [Lipitor] 10 mg tablet 10 mg PO DAILY Qty: 90 3RF tamsulosin 0.4 mg capsule 0.4 mg PO DAILY Qty: 90 3RF aspirin [Aspir-81] 81 MG tablet,delayed release (DR/EC) 81 mg PO DAILY tadalafil [Cialis] 10 mg tablet 10 mg PO DAILY PRN Discharge Instructions Additional Instructions: Please return immediately to the emergency department if you develop any new or worsening symptoms, if your condition does not improve as expected, or if you become otherwise concerned. It is extremely important that you call soon as possible to make an appointment to be seen in follow-up for this visit by your primary care doctor. Stand Alone Forms: Physical Therapy Referral Referrals: Bobbi Ambriz MD, [place] [Primary Care Provider] -
[2022-05-01 18:13] VITALS: BP 134/89; PULSE 66; TEMP 36.5; O2SAT 97
== END 2022-05-01 18:18 | disposition home or self-care (01) ==
PROVIDERS: Student in an Organized Health Care Education/Training Program; Emergency Provider Student in an Organized Health Care Education/Training Program; PCP Family Medicine
DX: R42 Dizziness and giddiness (principal); R20.0 Anesthesia of skin
CPT/HCPCS: 70544; 70547; 80053; 87635; 93005; 70551; 83735; 84484; 85025; 85379; 93010; 99284; 99285

== ENCOUNTER 2022-05-03 06:14 | Day surgery (SDC) | payer MEDICARE, BC, SELFPAY ==
[2022-05-03] VITALS (13 sets, daily range): BP systolic 98–134; BP diastolic 44–79; PULSE 51–69; RESP 10–21; TEMP 36.4–37; O2SAT 91–98; BMI 34.0
--- NOTE | 2022-05-03 03:02 | ANES.PREOP_ITS ---
General Info Date of Service Date Performed: 05/03/22 Height: 5 ft 11 in Weight: 110.677 kg Body Mass Index (BMI): 34.0 Surgical Procedure: Operation Date: 05/03/22 07:40 Proposed Procedure Side Surgeon p Shoulder Possible Rotator Cuff Arthroscopic,Biceps Tenodesis Right Bean Vincent MD Meds Allergies and Home Medications Allergies Allergy/AdvReac Type Severity Reaction Status Date / Time adhesive Allergy Intermediate Skin Rash Verified 05/03/22 06:34 Penicillins Allergy Unknown ? Rash, Verified 05/03/22 06:34 patient not sure, happened as child Home Medication Medication Instructions Recorded aspirin 81 mg tablet,delayed 81 mg PO DAILY 04/14/13 release (Aspir-) mecobalamin (vitamin B12) 1,000 1,000 mcg sublingual DAILY 04/20/20 mcg disintegrating tablet,sublingual vit C 250 mg-vit E 200 unit-zinc 1 cap PO BID 08/19/20 ox 12.5 [id number] capsule (ICaps AREDS2) fexofenadine 180 mg tablet 180 mg PO DAILY 03/10/21 (Sheron Allergy) atorvastatin 10 mg tablet (Lipitor) 10 mg PO DAILY #90 tab-caps 11/10/21 tamsulosin 0.4 mg capsule 0.4 mg PO DAILY #90 caps 11/10/21 meclizine 25 mg tablet 25 mg PO BID PRN #30 tabs 05/01/22 tadalafil 10 mg tablet (Cialis) 10 mg PO DAILY PRN 05/01/22 amlodipine 10 mg tablet 10 mg PO HS 05/02/22 acetaminophen 500 mg tablet 1,000 mg PO Q8H PRN pain #90 tabs 05/03/22 aspirin 81 mg tablet,delayed 81 mg PO BID #28 tabs 05/03/22 release celecoxib 200 mg capsule 200 mg PO BID PRN pain #60 caps 05/03/22 oxycodone 5 mg tablet 5 mg PO Q4H #15 tabs 05/03/22 Current Visit Medications: Current Medications Generic Name Dose Route Start Last Admin Trade Name Freq PRN Reason Stop Dose Admin Acetaminophen 1,000 mg 05/03/22 06:30 Acetaminophen 500 Mg Tab PO 05/03/22 06:31 NOW ONE Celecoxib 400 mg 05/03/22 06:00 Celecoxib 200 Mg Cap PO 06/01/22 23:59 PREOP MELANI Ringer's Solution 1,000 mls @ 80 mls/hr 05/03/22 06:00 IV 06/01/22 23:59 INFUSION MELANI Cefazolin Sodium/Dextrose 2 gm in 50 mls @ 100 mls/hr 05/03/22 06:00 Ancef Duplex IVPB 06/01/22 23:59 PREOP MELANI IV Miscellaneous Supplies 1 each 05/03/22 06:00 Iv Access IV 06/01/22 23:59 DIRECTED MELANI Sodium Chloride 0 ml 05/03/22 06:00 Normal Saline Flush 10 Ml Syr IV 06/01/22 23:59 PRN PRN Sodium Chloride 0 ml 05/03/22 06:00 Normal Saline 10 Ml Vial IJ 06/01/22 23:59 DIRECTED PRN Sterile Water 0 ml 05/03/22 06:00 Water,Injection,Sterile 10 Ml Vial IJ 06/01/22 23:59 DIRECTED PRN PFSH Active Problems Active Problems: Problem Status Onset Code Dizziness R42 Dysfunction of right rotator cuff M67.911 Tendonitis of long head of biceps brachii of right shoulder M75.21 Rash R21 Heart palpitations R00.2 Hypertension I10 Impingement syndrome of right shoulder M75.41 PVC (premature ventricular contraction) I49.3 Diverticulosis K57.90 Tubular adenoma of colon D12.6 Tinnitus H93.19 Sensorineural hearing loss, bilateral 08/21/14 H90.3 Sciatica M54.30 Peripheral venous insufficiency I87.2 Obstructive sleep apnea syndrome 07/23/12 G47.33 Obesity E66.9 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 Xavier History of surgery S/P left rotator cuff repair. S/P vein stripping of legs. S/P ORIF of left index finger, S/P T and A. S/P some kind of nose surgery. Post-nasal drip Dr. Xavier Tendinitis of long head of biceps brachii of left shoulder Throat clearing Dr. Xavier Traumatic tear of right rotator cuff Unilateral inguinal hernia right Welcome to Medicare preventive visit Surgical History Surgical History Colonoscopy - MAC (~07/2018) 2006; 2014, TUBULAR ADENOMA History of vein stripping Repair of inguinal hernia LEFT Rotator Cuff Repair (01/09/11) left Status post inguinal hernia repair Status post rotator cuff repair vein stripping (04/26/10) non-healing venous stasis ulcer; LLE; Greater saphenous vein stripping Tobacco Smoking/Tobacco Use Status: Never Passive smoking exposure: Yes Second hand exposure: Yes Alcohol Alcohol Intake: current Alcohol intake frequency: a few times a week Substance Use Substance use: Never Substance use type: does not use Vital Signs and Lab Results Vital Signs Most Recent Vital Signs in EMR: Temp Pulse Resp BP Pulse Ox 36.7 C 69 16 123/77 98 05/03/22 06:30 05/03/22 06:30 05/03/22 06:30 05/03/22 06:30 05/03/22 06:30 Lab Results Blood Type / Crossmatch: No Data to Display Complete Blood Count: White Blood Count 6.71 10^3/uL (4.4-10.8) 05/01/22 11:55 Red Blood Count 4.21 10^6/uL (4.36-5.78) L 05/01/22 11:55 Hemoglobin 12.9 g/dL (13.5-17.5) L 05/01/22 11:55 Hematocrit 37.7 % (40.0-50.0) L 05/01/22 11:55 Platelet Count 224 10^3/uL (130-400) 05/01/22 11:55 Complete Metabolic Panel: Sodium Level 141 mmol/L (136-145) 05/01/22 13:40 Potassium Level 3.5 mmol/L (3.5-5.1) 05/01/22 13:40 Chloride Level 106 mmol/L (98-107) 05/01/22 13:40 Carbon Dioxide Level 26.7 mmol/L (21.0-32.0) 05/01/22 13:40 Blood Urea Nitrogen 15 mg/dL (7-18) 05/01/22 13:40 Creatinine 0.8 mg/dL (0.70-1.30) 05/01/22 13:40 Estimated GFR/1.73 m2 >= 60.00 (mL/min/1.73m2) 05/01/22 13:40 Magnesium Level 2.2 mg/dL (1.8-2.4) 05/01/22 13:40 Calcium Level 8.6 mg/dL (8.5-10.1) 05/01/22 13:40 Albumin 3.6 g/dL (3.4-5.0) 05/01/22 13:40 Glucose Level 91 mg/dL (74-106) 05/01/22 13:40 Liver Function Panel: Alanine Aminotransferase (ALT/SGPT) 36 U/L (16-63) 05/01/22 13: 40 Aspartate Amino Transf (AST/SGOT) 21 U/L (15-37) 05/01/22 13:40 Coagulation Panel: D-Dimer 518 ng/mlFEU (<500) H 05/01/22 13:40 Cardiac Panel: Troponin I < 50 ng/L (<or=60) 05/01/22 Arterial Blood Gas: No Data to Display Venous Blood Gas: No Data to Display Pancreas Panel: No Data to Display Thyroid Panel: No Data to Display Infectious Disease: Coronavirus (COVID-19)(PCR) Negative (Negative) 05/01/22 10:19 Coronavirus 2019 Source Nasal/Nares 05/01/22 10:19 Blood Cultures: No Data to Display Toxicology Panel: No Data to Display Imaging and Studies Imaging and Studies Study information below may be from another EMR and interpreted by another provider. Please see original notes in EMR for more complete details. EKG Summary: 05/01/22: sinus. Anesthesia Assessment and Plan Anesthesia History Personal History: No History of Anesthesia Complications Family History: No Family History of Anesthesia Complications Exercise Tolerance Exercise Tolerance: Metabolic Equivalents>4 Cardiac & Pulmonary Exam Cardiac Exam: Normal S1/S2 Heart Sounds Pulmonary Exam: Clear Bilateral Breath Sounds Implantable Cardiac Device Does patient have a Pacemaker or an ICD?: No Airway Exam Known Difficult Airway: No Mallampati Class: 3 Mouth Opening: Narrow (< 3cm) Thyromental Distance: Greater than 3 cm Neck Range of Motion: Full ROM and Limited ROM Neck Circumference: Thick Teeth Condition: Normal Dentition ASA Classification ASA Score: ASA 2 Emergency Case?: No NPO Status NPO Status: NPO Clears >2 hours, Solids >8 hours Anesthesia Plan Resuscitation Status: Full Code Anesthesia Technique: General Anesthesia Airway Planned: Endotracheal Tube Pain Management: Surgeon and patient request nerve block Monitors Used: Standard Monitors Preoperative Comments:: 72 yo male for right shoulder repair. Sig PMHx: dizziness, HTN, PVC, venous stasis, MANFRED, never smoker, occ EtOH. Had a recent ED visit for dizziness and facial numbness. He had a MRI/MRA of head and neck that ruled out CVA/carotid issues. I called to discuss this with him on 05/03/22 to discuss that I could not guarantee that anesthesia could make him more dizzy and may set him back. He understands the risk, and would like to proceed. Plan: DYAN [facility]
[2022-05-03] MEDS: Celecoxib 200 MG CAP 400 MG PO (06:38)
[2022-05-03] MEDS: Acetaminophen 500 MG TAB 1000 MG PO (06:38)
[2022-05-03] MEDS: Lactated Ringers 1,000 ML 80 ML IV (07:10)
--- NOTE | 2022-05-03 07:22 | PDOC.DSDIS_ITS ---
Discharge Plan Disposition Patient Disposition: HOME Condition: Good Discharge Details Reason For Visit: Right Shoulder Biceps Tendinitis, Rotator Cuff Dys Attending Provider: Bean Vincent Primary Care Provider: Bobbi Ambriz Home Meds and New Rx's Prescriptions: New celecoxib 200 mg capsule 200 mg PO BID PRN (Reason: pain) Qty: 60 1RF aspirin 81 mg tablet,delayed release (DR/EC) 81 mg PO BID Qty: 28 0RF acetaminophen 500 mg tablet 1,000 mg PO Q8H PRN (Reason: pain) Qty: 90 3RF oxycodone 5 mg tablet 5 mg PO Q4H Qty: 15 0RF Continued mecobalamin (vitamin B12) 1,000 mcg tablet,disintegrating 1,000 mcg SL DAILY Rx Instructions: place tablet under tongue and allow to dissolve for at least30 secs before swallowing ICaps AREDS2 250 mg-200 unit -12.5 mg-1 mg capsule 1 cap PO BID fexofenadine [Sheron Allergy] 180 mg tablet 180 mg PO DAILY atorvastatin [Lipitor] 10 mg tablet 10 mg PO DAILY Qty: 90 3RF tamsulosin 0.4 mg capsule 0.4 mg PO DAILY Qty: 90 3RF aspirin [Aspir-81] 81 MG tablet,delayed release (DR/EC) 81 mg PO DAILY amlodipine 10 mg tablet 10 mg PO HS tadalafil [Cialis] 10 mg tablet 10 mg PO DAILY PRN meclizine 25 mg tablet 25 mg PO BID PRNQty: 30 0RF Discharge Instructions Stand Alone Forms: Melisa Thacker w/RCR Referrals: Bean Vincent MD [ [facility] STAFF PHYSICIAN] - Equipment/Supplies: Sling Activity:: In Sling Remove Dressings/Wound Care:: 72 hours Shower/Bathe:: 72 hours Discharge Orders Discharge Orders: Discharge Order (Routine); Ordered 05/03/22 Ordered By: Bean Vincent
[2022-05-03] MEDS: ceFAZolin 2 GM/50 ML BAG IVPB (07:31)
--- NOTE | 2022-05-03 07:59 | W.ANESNERVE ---
Nerve Block Single Injection Procedure Date and Time Date Performed: 05/03/22 Procedure Start: 07:18 Location Where Procedure Performed Procedure Location: Day Surgery Unit Reason Performed: Postoperative Analgesia Requesting Provider: Bean Vincent Timeout Performed Timeout Performed: Yes Monitoring Used ECG, Blood Pressure and SpO2 Sterility Sterility: Hand Hygiene, Surgical Cap, Surgical Mask, Sterile Gloves and Chlorhexidine Sedation Given During Procedure Sedation Given (Indicate Dose Given): No Sedation given Patient Mental Status Patient Mental Status: Awake Nerve Block 1st Nerve Block: Laterality: Right Block Type: Interscalene Needle / Catheter Used: 100mm SonoPlex II Local Anesthetic Bolus (Indicate Dose Given): Lidocaine used for local infiltration of skin, Injected in 3-5ml increments after negative blood aspiration and Bupivacaine 0.375% Dose:: 20 mL Additives (Indicate Dose Given): Precedex Dose:: 40 mcg Ultrasound: Sterile probe cover and gel used Ultrasound Image Saved?: Yes Nerve Stimulator: Not Used Paresthesia: None Procedure Tolerated: No Complications Procedure Outcome: Successful Performed By: Som Narayan
[2022-05-03] MEDS: EPINEPHrine 30 MG/30 ML VIAL (08:10)
--- NOTE | 2022-05-03 09:02 | W.PM.OP ---
Date of service: 05/03/22 Time of Service: 09:02 Operative Note Operative Note DATE OF PROCEDURE: 05/03/22 PRE-OP DIAGNOSIS: Right Biceps Tendonitis, Rotator Cuff Dysfunction POST-OP DIAGNOSIS: other (Right biceps tendonitis, partial tear along with upper subscapularis tear) PROCEDURE: - Arthroscopic Rotator Cuff Repair - Extensive debridement of anterior and posterior glenohumeral joint and rotator cuff - Biceps Tenotomy SURGEON: Bean Vincent FRONT END DEVELOPER: Nguyễn Walker Refer to Anesthesia Record ESTIMATED BLOOD LOSS: 0 PATHOLOGY: none sent COMPLICATIONS: None Patient was transported to: PACU Patient's condition: stable Indications: I have seen David in clinic for a painful shoulder. Pathology was confirmed based on previous MRI and exam findings. Nonoperative measures were exhausted but disability and pain persisted. I discussed shoulder arthroscopy and procedures. I reviewed the risks of the procedures to include, but not limited to, bleeding, infection, pain, stiffness, damage to nerves or vessels, recurrence, hardware failure, blood clot. Despite these risks, the patient elected to proceed. Findings: A diagnostic arthroscopy was performed with the following findings: Articular Side - Glenohumeral Joint: Minimal arthritic changes, Grade I chondromalacia of the inferior glenoid and the humeral head - Labrum: Fraying and tearing of superior and anterior labrum - Cuff: Upper subscapularis tear, thinning but no clear tear of supraspinatus/infraspinatus - Biceps: Fraying and inflammatory changes, subluxable medially. Subacromial Side - Bursal: No significant inflammation - Rotator Cuff: 2-3mm bursal tear of the supraspinatus - No significant spurring Procedure Description: David was greeted in the preoperative holding area where the correct side was identified and marked. The consent was reviewed with the patient and signed. The history and physical was updated. All questions were answered. He was taken back to the PACU for administration of an intrascalene nerve block. David was then taken to the operating room. The patient was placed into the supine position on the operating room table. A general anesthetic was administered. David was then positioned in the beach chair position. All bony prominences were well padded. The head was placed in a foam head of marketing adometry in a neutral position. Prophylactic antibiotics in the form of Cefazolin were administered. The right arm/shoulder was then prepped with Chloraprep and draped in a standard fashion with stockinette and shoulder drape. A timeout to confirm correct identity, side and site, procedure, allergies, anesthesia, and medical concerns was performed. The arm was placed into a pneumatic delgaod, SPIDER2. The shoulder arthroscopy was then performed. The glenohumeral joint was injected with 20 cc of normal saline with good flow back. A standard posterior portal was made and the joint was entered atraumatically with a blunt arthroscope. Once inside we had good visualization of the structures of the glenohumeral joint. An anterior portal was established with spinal needle localization. A 6.5 mm cannula was inserted. A probe was then used to perform a diagnostic arthroscopy. There is noted to be only some mild, grade 1, changes of the cartilage of the inferior glenoid and the humeral head. There is small osteophyte at the inferior margin of the humeral head. The labrum was was intact but had fraying noted mostly superiorly and anteriorly with a largely deficient anterior labrum and a large middle glenohumeral ligament, Ewell complex. There were no loose bodies in the inferior pouch. The superior rotator cuff was attached to the tuberosity with some chronic changes related to previous surgery and thinning of the tendon but no true tearing off of the tuberosity. Some irregularities over the inferior surface of the supraspinatus. The biceps tendon had some partial tearing over its anterior margin with inflammatory change and it was easily subluxated out of its groove. The subscapularis was grossly intact except for the superior aspect. The upper portion subscapularis had fraying and was pulled off of its lesser tuberosity insertion. At this point I used the shaver to perform debridement of the posterior and anterior labrum. I also removed a portion of the rotator interval for better visualization of the subscapularis. An electrocautery device was then utilized to perform a biceps tenotomy. Further debridement of the rotator interval was performed. Shaver was also then utilized to debride the leading edge of the subscapularis for better visualization. I then placed a secondary portal anterior to the anterior edge of the supraspinatus over the roof of the bicipital groove. This was made with a spinal needle localization and a 6.5 mm cannula was placed. This began the primary working portal for manipulation of the subscapularis. A debridement of the tendon edge as well as the upper portion of the lesser tuberosity was performed with a shaver. A 4.5 mm Mitek Healix anchor was then placed within the lesser tuberosity footprint from the anterior portal. This was tested and noted to have excellent purchase within the bone. From the anterior lateral portal, I then placed 2 horizontal mattress sutures through the healthy tendinous portion of subscapularis. These were placed and then brought out the anterior portal. Reduction appeared to be excellent onto the lesser tuberosity footprint. I then tied each of the sutures using standard arthroscopic knot tying techniques. The sutures were cut and the subscapularis was tested to 45 degrees of external rotation without lift off. Is also mainly probed had no lift off from the lesser tuberosity. The arthroscope was then inserted into the subacromial space. The 6.5 mm cannula was placed lateral to the CA ligament. A bursectomy was performed anteriorly, posteriorly, and laterally with electrocautery and shaver. There is no significant inflammatory change. This had excellent exposure of the rotator cuff. The bursal side rotator cuff was intact except for a very small area, 2 to 3 mm, of tearing of the bursal side of the anterior supraspinatus. This was debrided.. There was no significant anterolateral spur. The scope equipment was removed from the shoulder. Excess fluid was evacuated. The portal sites were closed with 3-0 Monocryl. The wounds were dressed with Steri-Strips, 4 x 4's, ABDs, Medipore tape. A sling was applied. The patient tolerated the procedure well and was returned to the PACU in a stable condition suffering no known complication.
--- NOTE | 2022-05-03 09:38 | ROE_ITS ---
Date of service: 05/03/22 Operative Note Operative Note DATE OF PROCEDURE: 05/03/22 POST-OP DIAGNOSIS: other (Right biceps tendonitis, partial tear along with upper subscapularis tear) PROCEDURE: - Arthroscopic Rotator Cuff Repair - Extensive debridement of anterior and posterior glenohumeral joint and rotator cuff - Biceps Tenotomy SHEARING SHED WORKER: Nguyễn Walker Refer to Anesthesia Record ESTIMATED BLOOD LOSS: 0 PATHOLOGY: none sent Patient was transported to: PACU Patient's condition: stable Implants: - Arthroscopic Rotator Cuff Repair - Extensive debridement of anterior and posterior glenohumeral joint and rotator cuff - Biceps Tenotomy
--- NOTE | 2022-05-03 10:53 | W.ANESPOSTOP ---
Postoperative Evaluation Date, Time and Location Date Performed: 05/03/22 Time Performed: 10:53 Patient Location: Day Surgery Unit Vital Signs Most Recent Imported Vital Signs: Most Recent Vital Signs Temp Pulse Resp BP Pulse Ox 36.4 C L 53 L 16 105/62 93 05/03/22 10:44 05/03/22 10:44 05/03/22 10:44 05/03/22 10:44 05/03/22 10:44 Pain Score Most Recent Pain Score: Most Recent Pain Score Pain Level 0 05/03/22 10:44 Assessment Mental Status: Awake (Alert & Oriented to Patient Baseline) Airway and Respiratory Function: Patent airway with normal (patient baseline) respiratory exam Cardiovascular Function: Hemodynamically Stable Hydration Status: Adequately Hydrated Nausea & Vomiting: No Nausea or Vomiting Pain: Pain is tolerable per patient Peripheral Nerve Block: Regional nerve block not resolved at time of post operative discharge
== END 2022-05-03 13:25 | disposition home or self-care (01) ==
PROVIDERS: PCP Family Medicine; Visit Provider Student in an Organized Health Care Education/Training Program
PROC: (CPT 29827; principal; 2022-05-03 07:30)
DX: M75.21 Bicipital tendinitis, right shoulder (principal); M75.111 Incomplete rotator cuff tear or rupture of right shoulder, not specified as traumatic; I10 Essential (primary) hypertension; I87.2 Venous insufficiency (chronic) (peripheral); G47.33 Obstructive sleep apnea (adult) (pediatric); E78.5 Hyperlipidemia, unspecified
CPT/HCPCS: 29827; 29823; 29828; C1776; 76942; J0690; J1100; J2370; J2405; J2704

== ENCOUNTER → 2022-05-15 14:39 | Outpatient (BNVA) | payer MEDICARE, BC, SELFPAY | PROVIDERS: PCP Family Medicine; Referring Provider Family Medicine; Visit Provider Student in an Organized Health Care Education/Training Program | DX: Z47.89 Encounter for other orthopedic aftercare (principal); M67.911 Unspecified disorder of synovium and tendon, right shoulder; M75.21 Bicipital tendinitis, right shoulder ==

== ENCOUNTER 2022-06-08 03:36 | Outpatient (CLI) | payer MEDICARE, BC, SELFPAY ==
[2022-06-08 13:32] LABS: Calculated LDL 70 mg/dL (<100); Cholesterol 182 mg/dL (<200); HDL Cholesterol 55 mg/dL (40-60); Triglyceride 289 mg/dL (<150)
[2022-06-08 23:31] LABS: PSA, Diagnostic 0.5 ng/mL (<=6.5)
== END 2022-06-08 03:37 | disposition home or self-care (01) ==
LOC: LBO 03:36
PROVIDERS: PCP Family Medicine; Visit Provider Nurse Practitioner Gerontology
DX: I10 Essential (primary) hypertension (principal); N40.0 Benign prostatic hyperplasia without lower urinary tract symptoms
CPT/HCPCS: 36415; 80061; 84153

== ENCOUNTER → 2022-06-12 14:10 | Outpatient (BNVA) | payer MEDICARE, BC, SELFPAY | PROVIDERS: PCP Family Medicine; Referring Provider Family Medicine; Visit Provider Student in an Organized Health Care Education/Training Program | DX: Z47.89 Encounter for other orthopedic aftercare (principal); M67.911 Unspecified disorder of synovium and tendon, right shoulder; M75.21 Bicipital tendinitis, right shoulder ==

== ENCOUNTER → 2022-06-15 11:06 | Outpatient (BNVA) | payer MEDICARE, BC, SELFPAY | PROVIDERS: PCP Family Medicine; Referring Provider Family Medicine; Visit Provider Nurse Practitioner Gerontology | DX: N40.1 Benign prostatic hyperplasia with lower urinary tract symptoms (principal); R35.1 Nocturia | CPT/HCPCS: 51798; 99214 ==

== ENCOUNTER → 2022-07-24 14:07 | Outpatient (BNVA) | payer MEDICARE, BC, SELFPAY | PROVIDERS: PCP Family Medicine; Referring Provider Family Medicine; Visit Provider Student in an Organized Health Care Education/Training Program | DX: Z47.89 Encounter for other orthopedic aftercare (principal); M75.21 Bicipital tendinitis, right shoulder; M67.911 Unspecified disorder of synovium and tendon, right shoulder; M75.41 Impingement syndrome of right shoulder ==

== ENCOUNTER 2023-05-18 01:44 | Outpatient (CLI) | payer MEDICARE, BC, SELFPAY ==
[2023-05-18 12:59] LABS: ALT 32 U/L (16-63); AST 18 U/L (15-37); Albumin 3.7 g/dL (3.4-5.0); Alkaline Phosphatase 85 U/L (46-116); Anion Gap 10.7 mmol/L (3-11); BUN 16 mg/dL (7-18); Bilirubin, Total 0.7 mg/dL (0.2-1.0); CO2 25.3 mmol/L (21.0-32.0); CREATININE 0.8 mg/dL (0.70-1.30); Calcium 8.8 mg/dL (8.5-10.1); Calculated LDL 81 mg/dL (<100); Chloride 106 mmol/L (98-107); Cholesterol 161 mg/dL (<200); Estimated GFR 92.29 (mL/min/1.73m2); Glucose 96 mg/dL (74-106); HDL Cholesterol 52 mg/dL (40-60); Sodium 142 mmol/L (136-145); Total Protein 7.5 g/dL (6.4-8.2); Triglyceride 141 mg/dL (<150); Vitamin B12 713 pg/mL (193-986)
[2023-05-18 19:35] LABS: PSA, Diagnostic 0.6 ng/mL (<=6.5)
== END 2023-05-18 01:45 | disposition home or self-care (01) ==
LOC: LOS 01:44
PROVIDERS: PCP Family Medicine; Visit Provider Family Medicine
DX: E78.5 Hyperlipidemia, unspecified (principal); I10 Essential (primary) hypertension; I49.3 Ventricular premature depolarization; N40.0 Benign prostatic hyperplasia without lower urinary tract symptoms
CPT/HCPCS: 36415; 80053; 80061; 82607; 84153

== ENCOUNTER → 2023-06-04 08:11 | Outpatient (BNVA) | payer MEDICARE, BC, SELFPAY | PROVIDERS: PCP Family Medicine; Referring Provider Family Medicine; Visit Provider Nurse Practitioner Gerontology | DX: N40.1 Benign prostatic hyperplasia with lower urinary tract symptoms (principal); R39.89 Other symptoms and signs involving the genitourinary system; I10 Essential (primary) hypertension | CPT/HCPCS: 51798; 99213 ==

== ENCOUNTER → 2023-09-26 07:26 | Outpatient (BNVA) | payer MEDICARE, BC, SELFPAY | PROVIDERS: PCP Family Medicine; Referring Provider Family Medicine; Visit Provider Surgery | DX: Z12.11 Encounter for screening for malignant neoplasm of colon (principal); Z86.010 Personal history of colon polyps ==

== ENCOUNTER 2023-10-09 10:19 | Day surgery (SDC) | payer MEDICARE, BC, SELFPAY ==
[2023-10-09 10:45] VITALS: BP 141/82; PULSE 68; RESP 18; TEMP 36.5; O2SAT 97
--- NOTE | 2023-10-09 10:55 | W.COLOREPORT ---
Date of service: 10/09/23 Time of Service: 13:00 Colonoscopy Report Procedure Description: PROCEDURES PERFORMED: 1. Colonoscopy PREOPERATIVE DIAGNOSIS: Surveillance colonoscopy POSTOPERATIVE DIAGNOSIS: Sigmoid diverticulosis SURGEON: Tila Telles MD INDICATION for procedure: 73-year-old man who does not have any symptoms or concerns. He is due for surveillance colonoscopy. He has had some adenomatous polyps in the past. No family history of colon cancer. FINDINGS: Normal terminal ileum. No new polyps. No inflammation. Diverticular changes are present in the left colon and are moderate to severe but there is no inflammation or stricture or fibrosis noted. No significant hemorrhoidal disease noted. SURVEILLANCE-INTERVAL/FOLLOW-UP: I think a repeat colonoscopy can be considered in 7 to 10 years since no new polyps were found. Specimens: None EBL: Minimal COMPLICATIONS: None QUALITY of prep: Excellent Procedure in detail: The patient gave written consent and was in agreement with the indications, the potential risks as well as the benefits of the procedure. He was taken to the endoscopy suite and laid in the left lateral decubitus position. A timeout was performed and anesthesia was administered which was tolerated well. I started the procedure. Digital rectal and visual examination was performed and grossly within normal limits. A well-lubricated flexible colonoscope was then introduced and passed without any notable difficulty all the way to the cecum identified by the ileocecal valve and the appendiceal orifice. The terminal ileum was briefly intubated and looked normal visually. The scope was then slowly withdrawn with the above-noted findings. The patient tolerated the procedure well and was taken to the PACU in hemodynamically stable condition.
--- NOTE | 2023-10-09 10:55 | W.PM.DSUDISC ---
Date of service: 10/09/23 Time of Service: 13:02 Discharge Plan Disposition Patient Disposition: Home Condition: Good Discharge Details Attending Provider: Brett Telles Primary Care Provider: Bobbi Ambriz Home Meds and New Rx's Prescriptions: No Action mecobalamin (vitamin B12) 1,000 mcg tablet,disintegrating 1,000 mcg SL DAILY Rx Instructions: place tablet under tongue and allow to dissolve for at least30 secs before swallowing atorvastatin [Lipitor] 10 mg tablet 10 mg PO DAILY Qty: 90 3RF polyethylene glycol 3350 17 gram/dose powder 238 g PO ONCE Qty: 238 0RF Rx Instructions: take per colonoscopy instructions bisacodyl [Dulcolax (bisacodyl)] 5 mg tablet,delayed release (DR/EC) 5 mg PO ONCE Qty: 4 0RF Rx Instructions: take per colonoscopy instructions ICaps AREDS2 250 mg-200 unit -12.5 mg-1 mg capsule 1 cap PO BID amlodipine 10 mg tablet 10 mg PO DAILY Qty: 90 4RF sildenafil 100 mg tablet 100 mg PO DAILY PRN (Reason: sexual activity) Qty: 30 3RF Rx Instructions: administer 30 minutes to 4 hours before activity [email or web address]; please ship to [place] address tamsulosin 0.4 mg capsule 0.4 mg PO DAILY Qty: 90 3RF aspirin [Aspir-81] 81 MG tablet,delayed release (DR/EC) 81 mg PO DAILY acetaminophen 500 mg tablet 1,000 mg PO Q8H PRN (Reason: pain) Qty: 90 3RF Discharge Instructions Additional Instructions: FINDINGS: Significant diverticular disease was again seen today. This is not a new finding. There is nothing that needs to be done about this benign condition as long as you do not have significant symptoms from it. No polyps or inflammation or tumors were seen today. Stand Alone Forms: Colonoscopy Post Instructions Activity:: Activity as Tolerated Diet:: As Tolerated
[2023-10-09] MEDS: Lactated Ringers 1,000 ML 80 ML IV (11:50)
--- NOTE | 2023-10-09 12:08 | W.ANESPRE ---
General Info Date of Service Date Performed: 10/09/23 Height: 5 ft 11 in Weight: 106.2 kg Body Mass Index (BMI): 32.6 Surgical Procedure: Operation Date: 10/09/23 12:05 Proposed Procedure Side Surgeon p Edgardo Telles MD Meds Allergies and Home Medications Allergies Allergy/AdvReac Type Severity Reaction Status Date / Time adhesive Allergy Intermediate Skin Rash Verified 10/09/23 10:40 Penicillins Allergy Unknown ? Rash, Verified 10/09/23 10:40 patient not sure, happened as child Home Medication Medication Instructions Recorded aspirin 81 mg tablet,delayed 81 mg PO DAILY 04/14/13 release (Aspir-) mecobalamin (vitamin B12) 1,000 1,000 mcg sublingual DAILY 04/20/20 mcg disintegrating tablet,sublingual vit C 250 mg-vit E 200 unit-zinc 1 cap PO BID 08/19/20 ox 12.5 [id number]-yinhcx-zeax capsule (ICaps AREDS2) acetaminophen 500 mg tablet 1,000 mg (2 x 500 mg) PO Q8H PRN 05/03/22 pain #90 tabs atorvastatin 10 mg tablet (Lipitor) 10 mg PO DAILY #90 tab-caps 09/11/22 amlodipine 10 mg tablet 10 mg PO DAILY #90 tabs 12/15/22 sildenafil 100 mg tablet 100 mg PO DAILY PRN sexual 12/18/22 activity #30 tabs tamsulosin 0.4 mg capsule 0.4 mg PO DAILY #90 caps 08/13/23 bisacodyl 5 mg tablet,delayed 5 mg PO ONCE colonscopy bowel prep 09/26/23 release (Dulcolax (bisacodyl)) #4 tabs polyethylene glycol 3350 17 238 g PO ONCE colonoscopy prep 09/26/23 gram/dose oral powder #238 grams Current Visit Medications: Current Medications Generic Name Dose Route Start Last Admin Trade Name Freq PRN Reason Stop Dose Admin Ringer's Solution 1,000 mls @ 80 mls/hr 10/09/23 06:00 10/09/23 11:50 IV 10/09/23 23:59 80 mls/hr INFUSION MELANI Administration IV Miscellaneous Supplies 1 each 10/09/23 06:00 Iv Access IV 10/09/23 23:59 DIRECTED MELANI Sodium Chloride 0 ml 10/09/23 06:00 Normal Saline Flush 10 Ml Syr IV 10/09/23 23:59 PRN PRN Sodium Chloride 0 ml 10/09/23 06:00 Normal Saline 10 Ml Vial IJ 10/09/23 23:59 DIRECTED PRN Sterile Water 0 ml 10/09/23 06:00 Water,Injection,Sterile 10 Ml Vial IJ 10/09/23 23:59 DIRECTED PRN PFSH Active Problems Active Problems: Problem Status Onset Code Sinusitis J32.9 Dysfunction of right rotator cuff M67.911 Rash R21 Heart palpitations R00.2 Hypertension I10 Tendonitis of long head of biceps brachii of right shoulder M75.21 Impingement syndrome of right shoulder M75.41 PVC (premature ventricular contraction) I49.3 Diverticulosis K57.90 Tubular adenoma of colon D12.6 Tinnitus H93.19 Sensorineural hearing loss, bilateral 08/21/14 H90.3 Sciatica M54.30 Peripheral venous insufficiency I87.2 Obstructive sleep apnea syndrome 07/23/12 G47.33 Obesity E66.9 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 Xavier Globus sensation Dr. Xavier Throat clearing Dr. Xavier Welcome to Medicare preventive visit Decreased hearing of both ears Elevated blood pressure reading Unilateral inguinal hernia right Chronic ulcer of lower extremity History of surgery S/P left rotator cuff repair. S/P vein stripping of legs. S/P ORIF of left index finger, S/P T and A. S/P some kind of nose surgery. Surgical History Surgical History (Updated 10/09/23 @ 10:57 by Jolynn Bertrand RN) History of vein stripping Status post inguinal hernia repair Status post rotator cuff repair vein stripping (04/26/10) non-healing venous stasis ulcer; LLE; Greater saphenous vein stripping Rotator Cuff Repair (01/09/11) left Repair of inguinal hernia LEFT pt denies having this done 10/09/23-mb Colonoscopy - MAC (~07/2018) 2006; 2014, TUBULAR ADENOMA Tobacco Smoking/Tobacco Use Status: Never Passive smoking exposure: Yes Second hand exposure: Yes Alcohol Alcohol Intake: current Alcohol intake frequency: a few times a week Substance Use Substance use: Never Substance use type: does not use Vital Signs and Lab Results Vital Signs Most Recent Vital Signs in EMR: Most Recent Vital Signs Temp Pulse Resp BP Pulse Ox 36.5 C 68 18 141/82 H 97 10/09/23 10:45 10/09/23 10:45 10/09/23 10:45 10/09/23 10:45 10/09/23 10:45 Lab Results Blood Type / Crossmatch: No Data to Display Complete Blood Count: No Data to Display Complete Metabolic Panel: No Data to Display Liver Function Panel: No Data to Display Coagulation Panel: No Data to Display Cardiac Panel: No Data to Display Arterial Blood Gas: No Data to Display Venous Blood Gas: No Data to Display Pancreas Panel: No Data to Display Thyroid Panel: No Data to Display Infectious Disease: No Data to Display Blood Cultures: No Data to Display Toxicology Panel: No Data to Display Imaging and Studies Imaging and Studies Study information below may be from another EMR and interpreted by another provider. Please see original notes in EMR for more complete details. EKG Summary: 05/01/22: sinus. Anesthesia Assessment and Plan Anesthesia History Personal History: No History of Anesthesia Complications Family History: No Family History of Anesthesia Complications Exercise Tolerance Exercise Tolerance: Metabolic Equivalents>4 Pertinent Negatives Pertinent Negatives: No Symptoms of GERD, No Major Cardiovascular Symptoms or Complaints and No Major Pulmonary Symptoms or Complaints Cardiac & Pulmonary Exam Cardiac Exam: Normal S1/S2 Heart Sounds Pulmonary Exam: Clear Bilateral Breath Sounds Implantable Cardiac Device Does patient have a Pacemaker or an ICD?: No Airway Exam Known Difficult Airway: No Mallampati Class: 3 Mouth Opening: Narrow (< 3cm) Thyromental Distance: Greater than 3 cm Neck Range of Motion: Full ROM and Limited ROM Neck Circumference: Thick Teeth Condition: Normal Dentition ASA Classification ASA Score: ASA 2 Emergency Case?: No NPO Status NPO Status: NPO Clears >2 hours, Solids >8 hours Anesthesia Plan Resuscitation Status: Full Code Anesthesia Technique: General Anesthesia Airway Planned: Natural Airway Monitors Used: Standard Monitors
[2023-10-09 12:11] VITALS: BMI 32.6
[2023-10-09 12:52] VITALS: BP 123/73; PULSE 64; RESP 18; TEMP 36; O2SAT 96
[2023-10-09 13:29] VITALS: BP 134/71; PULSE 62; RESP 16; TEMP 35.9; O2SAT 97
--- NOTE | 2023-10-09 13:30 | W.ANESPOSTOP ---
Postoperative Evaluation Date, Time and Location Date Performed: 10/09/23 Time Performed: 12:52 Patient Location: Day Surgery Unit Vital Signs Most Recent Imported Vital Signs: Most Recent Vital Signs Temp Pulse Resp BP Pulse Ox 35.9 C L 62 16 134/71 97 10/09/23 13:29 10/09/23 13:29 10/09/23 13:29 10/09/23 13:29 10/09/23 13:29 Pain Score Most Recent Pain Score: Most Recent Pain Score Pain Level 0 10/09/23 13:29 Assessment Mental Status: Awake (Alert & Oriented to Patient Baseline) Airway and Respiratory Function: Patent airway with normal (patient baseline) respiratory exam Cardiovascular Function: Hemodynamically Stable Hydration Status: Adequately Hydrated Nausea & Vomiting: No Nausea or Vomiting Pain: Pt. Denies Any Pain Peripheral Nerve Block: Patient did not receive a nerve block
== END 2023-10-09 13:35 | disposition home or self-care (01) ==
PROVIDERS: PCP Family Medicine; Visit Provider Student in an Organized Health Care Education/Training Program
PROC: 0DJD8ZZ Inspection of Lower Intestinal Tract, Via Natural or Artificial Opening Endoscopic (ICD-10-PCS; CPT 45378; principal; 2023-10-09 12:00)
DX: Z12.11 Encounter for screening for malignant neoplasm of colon (principal); Z86.010 Personal history of colon polyps; K57.30 Diverticulosis of large intestine without perforation or abscess without bleeding; I10 Essential (primary) hypertension; E66.9 Obesity, unspecified
CPT/HCPCS: G0105; 00123; J2001

== ENCOUNTER → 2024-01-21 03:46 | Outpatient (CLI) | payer MEDICARE, BC, SELFPAY ==
--- NOTE | 2024-01-21 07:45 | DI.RAD_ITS ---
Exam(s) XR HIP RT COMPLETE AP PELVIS EXAM: XR HIP RT COMPLETE AP PELVIS CLINICAL HISTORY: right LBP and leg pain,m79.604. TECHNIQUE: 2D digital imaging was performed of the right hip. Three images were obtained. AP pelvis and lateral right hip views were obtained. COMPARISON: No exams were available for comparison FINDINGS: BONES: No acute fracture is present. No bony destructive lesion is seen. JOINTS: No dislocation present. The right hip is well maintained. No significant degenerative change s present. The sacroiliac joints are well maintained as is the symphysis pubis. The left hip is lik ewise unremarkable. SOFT TISSUE: Normal. IMPRESSION: Unremarkable radiographs of the right hip. DATA REPOSITORY: RADIATION DOSE DELIVERED:
--- NOTE | 2024-01-21 07:45 | DI.RAD_ITS ---
Exam(s) XR LUMBAR SPINE COMPLETE EXAM: XR LUMBAR SPINE COMPLETE CLINICAL HISTORY: right lbp and leg pain,m54.50. TECHNIQUE: 2D digital imaging was performed of the lumbar spine. Six images were obtained. AP, lat eral, right oblique, left oblique and L5-S1 spot views were obtained. COMPARISON: No exams were available for comparison FINDINGS: BONES: No fracture or destructive lesion. There are endplate osteophytes throughout the lumbar spine. Degenerative changes of the facets are seen at multiple levels of the lumbar spine. DISKS: Disc space narrowing is seen at L2-3 and L5-S1. ALIGNMENT: There is grade 1 spondylolisthesis of L5 on S1. There is bilateral L5 spondylolysis. SOFT TISSUE: Vascular calcifications are present. IMPRESSION: 1. Moderate degenerative changes in the lumbar spine. 2. Bilateral L5 spondylolysis and grade 1 spondylolisthesis of L5 on S1. DATA REPOSITORY: RADIATION DOSE DELIVERED:
== END ==
PROVIDERS: PCP Family Medicine; Visit Provider Family Medicine
DX: M54.59 Other low back pain (principal); M79.604 Pain in right leg; M51.37 Other intervertebral disc degeneration, lumbosacral region; M47.817 Spondylosis without myelopathy or radiculopathy, lumbosacral region; M43.17 Spondylolisthesis, lumbosacral region
CPT/HCPCS: 72110; 73502

== ENCOUNTER → 2024-02-14 04:21 | Outpatient (CLI) | payer MEDICARE, BC, SELFPAY ==
--- NOTE | 2024-02-14 07:00 | DI.MRI_ITS ---
Exam(s) MR LUMBAR SPINE WO EXAM: MR LUMBAR SPINE WO CLINICAL HISTORY: severe unremitting low back pain,pondylolisthesis L5-S1.lumbar. TECHNIQUE: Multiplanar multisequence MRI of the Lumbar spine was performed. COMPARISON: CR XR LUMBAR SPINE COMPLETE from 01/21/2024 FINDINGS: Bones: The last intervertebral disc space is designated the L5/S1 level for the numbering purpose of this examination. The vertebral body heights are well maintained. There is spondylolysis at L5 and grade 1 spondylolisthesis of L5 on S1. Degenerative endplate signal changes are present particularly at L5-S1. Cord: The conus tip ends at the T12 level. It is of normal size and signal intensity. T12-L1: No disc herniations or bulges are present. No central spinal canal or neural foraminal stenos is. L1-2: Mild diffuse disc bulge. There is mild narrowing of the central spinal canal. There is mild n arrowing of the left neural foramen. L2-3: There is a diffuse disc bulge. Degenerative changes of the facets. [id number]-[id number] central s olga canal stenosis is present. There is mild left neural foraminal stenosis. No significant right neural foraminal stenosis. L3-4: There is a diffuse disc bulge. There is a right paracentral disc herniation with extrusion pos terior to the L4 vertebral body. There is right lateral recess stenosis with compression of the righ t L4 nerve root. There are degenerative changes of the facets. There is mild narrowing of the centr al spinal canal. There is mild bilateral neural foraminal stenosis. L4-5: There is a diffuse disc bulge. There are degenerative changes of the facets. There is moderat e please severe central spinal canal stenosis. Moderate bilateral neural foraminal stenosis is prese nt. L5-S1: There is a diffuse disc bulge. There are degenerative changes of the facets. No significant central spinal canal stenosis is present. There is marked left and mild right neural foraminal steno sis. Soft tissues: The visualized SI joints and sacrum are well maintained. The paraspinal soft tissues ar e unremarkable. IMPRESSION: 1. Right disc herniation with extrusion posterior to L4 causing right lateral recess stenosis and com pression of the right L4 nerve root at L3-L4. 2. Multilevel degenerative changes in the lumbar spine resulting in central spinal canal and neural f oraminal stenosis. The findings are most marked at L4-L5. 3. L5 spondylolysis and grade 1 spondylolisthesis of L5 on S1. The findings result in marked left an d mild right neural foraminal stenosis. DATA REPOSITORY:
== END ==
PROVIDERS: PCP Family Medicine; Visit Provider Family Medicine
DX: M43.17 Spondylolisthesis, lumbosacral region (principal)
CPT/HCPCS: 72148

== ENCOUNTER 2024-05-23 02:31 | Outpatient (CLI) | payer MEDICARE, BC, SELFPAY ==
[2024-05-23 12:43] LABS: Hemoglobin A1C 5.3 % (<5.7)
[2024-05-23 12:57] LABS: ALT 34 U/L (16-63); AST 18 U/L (15-37); Albumin 3.7 g/dL (3.4-5.0); Alkaline Phosphatase 81 U/L (46-116); Anion Gap 5.9 mmol/L (3-11); BUN 16 mg/dL (7-18); Bilirubin, Total 0.55 mg/dL (0.2-1.0); CO2 29.1 mmol/L (21.0-32.0); CREATININE 0.9 mg/dL (0.70-1.30); Calcium 8.9 mg/dL (8.5-10.1); Calculated LDL 97 mg/dL (<100); Chloride 106 mmol/L (98-107); Cholesterol 167 mg/dL (<200); Estimated GFR 88.51 (mL/min/1.73m2); Glucose 110 mg/dL (74-106); HDL Cholesterol 57 mg/dL (40-60); Sodium 141 mmol/L (136-145); Total Protein 7.4 g/dL (6.4-8.2); Triglyceride 68 mg/dL (<150)
== END 2024-05-23 02:32 | disposition home or self-care (01) ==
LOC: LOS 02:31
PROVIDERS: PCP Family Medicine; Visit Provider Family Medicine
DX: I10 Essential (primary) hypertension (principal); E11.9 Type 2 diabetes mellitus without complications
CPT/HCPCS: 36415; 80053; 80061; 83036

== ENCOUNTER → 2024-06-02 08:15 | Outpatient (BNVA) | payer MEDICARE, BC, SELFPAY | PROVIDERS: PCP Family Medicine; Visit Provider Nurse Practitioner Gerontology | DX: N40.1 Benign prostatic hyperplasia with lower urinary tract symptoms (principal); R35.1 Nocturia | CPT/HCPCS: 51798; 99213 ==

== ENCOUNTER → 2025-06-01 08:18 | Outpatient (BNVA) | payer MEDICARE, BC, SELFPAY | PROVIDERS: PCP Family Medicine; Referring Provider Family Medicine; Visit Provider Nurse Practitioner Gerontology | DX: N40.1 Benign prostatic hyperplasia with lower urinary tract symptoms (principal); R35.1 Nocturia; R39.9 Unspecified symptoms and signs involving the genitourinary system | CPT/HCPCS: 99213; 51798 ==

== ENCOUNTER 2025-07-06 01:47 | Outpatient (CLI) | payer MEDICARE, BC, SELFPAY ==
[2025-07-06 14:58] LABS: ALT 32 U/L (16-63); AST 22 U/L (15-37); Albumin 3.9 g/dL (3.4-5.0); Alkaline Phosphatase 78 U/L (46-116); Anion Gap 10.1 mmol/L (3-11); BUN 17 mg/dL (7-18); Bilirubin, Total 0.7 mg/dL (0.2-1.0); CO2 27.9 mmol/L (21.0-32.0); Calcium 9.7 mg/dL (8.5-10.1); Calculated LDL 94 mg/dL (<100); Chloride 105 mmol/L (98-107); Cholesterol 170 mg/dL (<200); Estimated GFR 91.15 (mL/min/1.73m2); Glucose 101 mg/dL (74-106); HDL Cholesterol 63 mg/dL (>or=40); Potassium 4.0 mmol/L (3.5-5.1); Sodium 143 mmol/L (136-145); Total Protein 7.7 g/dL (6.4-8.2); Triglyceride 67 mg/dL (<150)
== END 2025-07-06 01:48 | disposition home or self-care (01) ==
LOC: LOS 01:47
PROVIDERS: PCP Family Medicine; Visit Provider Family Medicine
DX: I10 Essential (primary) hypertension (principal)
CPT/HCPCS: 36415; 80053; 80061